=== PATIENT | female | born 1985 | race Caucasian/White ===

== ENCOUNTER 2019-10-29 13:50 | Emergency (ER) | payer OTHER, SELFPAY ==
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
[2019-10-29 14:05] VITALS: BP 128/87; PULSE 82; RESP 18; TEMP 36.4; O2SAT 100
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
[2019-10-29] MEDS: IBUPROFEN 600 MG TABLET PO (14:35)
== END 2019-10-29 15:10 | disposition home or self-care (01) ==
PROVIDERS: Emergency Provider Emergency Medicine
DX: S29.012A Strain of muscle and tendon of back wall of thorax, initial encounter (principal); S39.012A Strain of muscle, fascia and tendon of lower back, initial encounter; V49.40XA Driver injured in collision with unspecified motor vehicles in traffic accident, initial encounter
CPT/HCPCS: 71046; 72110; 99284; A9270